=== PATIENT | female | born 2000 | race Caucasian/White ===

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

== ENCOUNTER 2021-02-19 15:52 | Emergency (ER) | payer OTHER ==
[~2021-02-19] VITALS: Ht 162.6 cm; Wt 70.8 kg
== END 2021-02-19 21:41 | disposition home or self-care (01) ==
LOC: ED 15:52
DX: G43.909 Migraine, unspecified, not intractable, without status migrainosus (principal)
CPT/HCPCS: 70450; 84703; 96374; 96375; 99284-25; J0780; J1100; J1200; J1885; J7030; U0003

== ENCOUNTER 2022-05-05 06:17 | Emergency (ER) | payer OTHER ==
[~2022-05-05] VITALS: Ht 162.6 cm; Wt 71.0 kg
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
[2022-05-05] MEDS ORDERED: METOCLOPRAMIDE10 MG (06:26)
[2022-05-05] MEDS ORDERED: PRENATAL VITAM1 EAC5 (06:27)
[2022-05-05] MEDS ORDERED: ONDANSETRON ODT4 MG PO (09:52)
== END 2022-05-05 10:03 | disposition home or self-care (01) ==
LOC: ED 06:17
DX: O21.0 Mild hyperemesis gravidarum (principal); Z3A.14 14 weeks gestation of pregnancy; Z79.899 Other long term (current) drug therapy
CPT/HCPCS: 36415; 80053; 81001; 83690; 83735; 85025; 96361; 96365; 96375; 99284-25; J2405; J2765; J3411; J3415; J7121

== ENCOUNTER 2022-10-12 22:06 | Inpatient (IN) | payer OTHER ==
[~2022-10-12] VITALS: Ht 162.6 cm; Wt 79.4 kg
--- NOTE | ~2022-10-12 | OR ---
[facility] [address] [place], [place] [address] Draft DATE OF OPERATION: 10/14/2022 SURGEON: Alie Gordon MD MACHINE HOSE CUTTER: Clint Dolan DO. PREOPERATIVE DIAGNOSIS: premature rupture of membranes, failure to progress the patient choice. POSTOPERATIVE DIAGNOSIS: premature rupture of membranes, failure to progress the patient choice, delivered. PROCEDURE: Primary section with low segment transverse uterine incision. ANESTHESIA: Epidural. ESTIMATED BLOOD LOSS: 500 mL. DRAINS: Arce catheter. INDICATIONS AND FINDINGS: The patient is a 22-year-old female, admitted on the evening of 10/12 with spontaneous rupture of membranes at 35 and 6/7th weeks. She was initially observed but failed to develop a regular labor pattern or make any significant change and Pitocin augmentation was begun. Pitocin was essentially continued for the next 24 hours with minimal change in her cervix. Pitocin was intermittently off to allow for re-sensitization of oxytocin receptors, but it was impossible to get a regular contraction pattern that lasted. She did have an IUPC and as well. After 36 hours, she had progressed from 1-4 cm total and had not made any progress over 12 hours. Options were discussed with the patient whether to continue with attempt at induction or to proceed with primary section, and she elected to proceed with primary section. She was taken the operating room where she was delivered of a little boy via lower segment transverse uterine incision with Apgars of 9 and 9 and a weight of 6 pounds 4 ounces. The uterus, tubes, ovaries, and placenta appeared normal. There is a small amount of clear fluid at PATIENT NAME: MARNIE FUNES OPERATIVE REPORT DATE OF : 00 REPORT #: [id number] PHYSICIAN: ALIE GORDON MD PCP: NO PRIMARY CARE PHYSICIAN REPORT IS CONFIDENTIAL AND NOT TO BE RELEASED WITHOUT AUTHORIZATION [facility] [address] [place], [place] [address] Draft delivery. DESCRIPTION OF PROCEDURE: The patient was prepped and draped in the supine position. A Pfannenstiel skin incision was made and carried down to the fascia. The incision was extended laterally. The inferior and superior fascial flaps were then created. The muscles were bluntly divided. The peritoneum was opened bluntly. This was extended bluntly as well. The Michael retractor was placed. The uterine incision was made at the upper aspect of the peritoneal reflection. The baby was delivered with the above findings and handed off to the pediatric staff in attendance. Cord blood was obtained. The placenta was removed manually and the uterus explored with a lap tape assuring no remaining fragments. The edges of the incision were identified and the uterus closed in two layers using 0 Monocryl. The first layer was a running locking stitch and the second was a vertical imbricating stitch. Bleeding points on the peritoneum were controlled with cautery. The abdomen was copiously irrigated, inspected and good hemostasis was noted. She initially had some atony which did not respond to the IV Pitocin and she did receive Cytotec suppository with good response. The uterus was nice and firm by the time the uterus was closed. The retractor was removed. The peritoneum identified. The peritoneum was closed with running suture of 3-0 Vicryl. The muscles were brought together with interrupted sutures of 0 Vicryl. Bleeding points were controlled with cautery. This layer was irrigated and good hemostasis was assured. The fascia was then closed from each angle to the midline with a running suture of 0 Vicryl. The subcu space was irrigated and bleeding points controlled with cautery. The deep space was closed with interrupted sutures of 3-0 Vicryl. The skin was closed with victorino. All sponge and needle counts were correct. She tolerated procedure well and was taken to the recovery room in good condition. MD YAMILEX Chin/[facility] /[id number] Copies: PATIENT NAME: MARNIE FUNES OPERATIVE REPORT DATE OF : 00 REPORT #: [id number] PHYSICIAN: ALIE GORDON MD PCP: NO PRIMARY CARE PHYSICIAN REPORT IS CONFIDENTIAL AND NOT TO BE RELEASED WITHOUT AUTHORIZATION [facility] [address] [place] [id number] Draft ~ PATIENT NAME: MARNIE FUNES OPERATIVE REPORT DATE OF : 00 REPORT #: [id number] PHYSICIAN: ALIE GORDON MD PCP: NO PRIMARY CARE PHYSICIAN REPORT IS CONFIDENTIAL AND NOT TO BE RELEASED WITHOUT AUTHORIZATION
[~2022-10-12 22:06] MED LIST changes: +METOCLOPRAMIDE10 MG; +ONDANSETRON ODT4 MG PO; +PRENATAL VITAM1 EAC5
[2022-10-13 00:07] VITALS: BP 132/87
--- NOTE | 2022-10-13 11:37 | PR ---
[facility] [address] [facility] [place], [place] [address] Signed Progress Notes IP Datetime Report Generated by CPN: 10/13/2022 11:37 PROGRESS NOTES: [id number] Impression: Reassuring Heart Rate Procedures: Intrauterine Pressure Catheter; Sterile Vag Exam Plan: Continue Present Management VITAL SIGNS: [id number] Vital Signs: Reviewed EXAM: [id number] Dilatation: 1.5 Effacement: 70 Station: -2 Contractions: q 1 to 2 min, mild MEMBRANES: [id number] Amniotic Fluid Color: Clear Comments: Still comfortable. Cx without change though contraction pattern appears adequate. IUP placed to allow for titration of pit as necessary. status good. FETUS A: [id number] FHR Baseline: 135 Variability: Moderate 6-25bpm Accelerations: 15X15 Decelerations: None FHR Category: Category I Presentation: Vertex Comments on Fetus A: no evidence of metabolic acidosis FETUS B: [id number] Signing Physician: Alie Gordon MD Copies: ~ *Electronically Signed* 10/13/22 1137 ALIE GORDON MD PATIENT NAME: MARNIE FUNES PROGRESS NOTE DATE OF : 00 PHYSICIAN: ALIE GORDON MD RPT #: [id number] REPORT IS CONFIDENTIAL AND NOT TO BE RELEASED WITHOUT AUTHORIZATION
--- NOTE | 2022-10-13 13:52 | PR ---
[facility] [address] [facility] [place] [address] Signed Progress Notes IP Datetime Report Generated by CPN: 10/13/2022 13:51 PROGRESS NOTES: [id number] Impression: Reassuring Heart Rate Procedures: Sterile Vag Exam Plan: Continue Present Management Other Plans: position changes VITAL SIGNS: [id number] Vital Signs: Reviewed EXAM: [id number] Dilatation: 2.0 Effacement: 70 Station: -2 Contractions: q 1 to 2 min, mild MEMBRANES: [id number] Amniotic Fluid Color: Clear Comments: Some left hip/back pain and pressure. Minimal change in cervix. Contraction pattern appears adequate. Will try hands and knees to see if this can help with baby's position and alleviate some of her pain. FETUS A: [id number] FHR Baseline: 135 Variability: Moderate 6-25bpm Accelerations: 15X15 Decelerations: None FHR Category: Category I Presentation: Vertex Comments on Fetus A: no evidence of metabolic acidosis FETUS B: [id number] Signing Physician: Alie Gordon MD Copies: ~ *Electronically Signed* 10/13/22 1351 ALIE GORDON MD PATIENT NAME: MARNIE FUNES PROGRESS NOTE DATE OF : 00 PHYSICIAN: ALIE GORDON MD RPT #: [id number] REPORT IS CONFIDENTIAL AND NOT TO BE RELEASED WITHOUT AUTHORIZATION
--- NOTE | 2022-10-13 16:27 | PR ---
[facility] [address] [place] [place] [address] Signed Progress Notes IP Datetime Report Generated by CPN: 10/13/2022 16:27 PROGRESS NOTES: [id number] Impression: Normal Progression of Labor Procedures: Sterile Vag Exam Plan: Continue Present Management Other Plans: continue position changes VITAL SIGNS: [id number] Vital Signs: Reviewed EXAM: [id number] Dilatation: 3.0 Effacement: 70 Station: -2 Contractions: q 1 to 2 min, mild MEMBRANES: [id number] Amniotic Fluid Color: Clear Comments: Comfortable after epidural. Some cervical change. Will decrease pit as now tommy too frequently. Will continue close observation. FETUS A: [id number] FHR Baseline: 135 Variability: Moderate 6-25bpm Accelerations: 15X15 Decelerations: None FHR Category: Category I Presentation: Vertex Comments on Fetus A: no evidence of metabolic acidosis FETUS B: [id number] Signing Physician: Alie Gordon MD Copies: ~ *Electronically Signed* 10/13/22 1627 ALIE GORDON MD PATIENT NAME: AISHA FUNESRA WALLKVNG PROGRESS NOTE DATE OF : 00 PHYSICIAN: ALIE GORDON MD RPT #: [id number] REPORT IS CONFIDENTIAL AND NOT TO BE RELEASED WITHOUT AUTHORIZATION
--- NOTE | 2022-10-13 18:45 | PR ---
[facility] [address] [place], [place] [address] Signed Progress Notes IP Datetime Report Generated by CPN: 10/13/2022 18:44 PROGRESS NOTES: [id number] Impression: Reassuring Heart Rate Procedures: Sterile Vag Exam Plan: Continue Present Management Other Plans: stop pit, hands and knees VITAL SIGNS: [id number] Vital Signs: Reviewed EXAM: [id number] Dilatation: 3.0 Effacement: 70 Station: -2 Contractions: q 1 to 2 min, mild MEMBRANES: [id number] Amniotic Fluid Color: Clear Comments: Minimal progress. Will stop pit for 30 min and restart. Will try hands and knees position. There is no evidence of intrauterine infection and status good at this time. Will continue to work toward vaginal delivery. FETUS A: [id number] FHR Baseline: 135 Variability: Moderate 6-25bpm Accelerations: 15X15 Decelerations: None FHR Category: Category I Presentation: Vertex Comments on Fetus A: no evidence of metabolic acidosis FETUS B: [id number] Signing Physician: Alie Gordon MD Copies: ~ *Electronically Signed* 10/13/22 1844 ALIE GORDON MD PATIENT NAME: MARNIE FUNES PROGRESS NOTE DATE OF : 00 PHYSICIAN: ALIE GORDON MD RPT #: [id number] REPORT IS CONFIDENTIAL AND NOT TO BE RELEASED WITHOUT AUTHORIZATION
--- NOTE | 2022-10-14 06:26 | PR ---
[facility] [address] [facility] [place], [place] [address] Signed Progress Notes IP Datetime Report Generated by CPN: 10/14/2022 06:25 PROGRESS NOTES: [id number] Impression: Reassuring Heart Rate Procedures: Sterile Vag Exam Plan: Continue Present Management Other Plans: stop pit VITAL SIGNS: [id number] Vital Signs: Reviewed EXAM: [id number] Dilatation: 4.0 Effacement: 70 Station: -2 Contractions: q 1 to 2 min, mild MEMBRANES: F4462490 Amniotic Fluid Color: Clear Comments: Minimal progress over last 12 hrs. Labor pattern can look very good and then deteriorate. Will stop pit for now and reevaluate in 30 to 60 min. FETUS A: [id number] FHR Baseline: 135 Variability: Moderate 6-25bpm Accelerations: 15X15 Decelerations: None FHR Category: Category I Presentation: Vertex Comments on Fetus A: no evidence of metabolic acidosis FETUS B: [id number] Signing Physician: Alie Gordon MD Copies: ~ *Electronically Signed* 10/14/22 0625 ALIE GORDON MD PATIENT NAME: MARNIE FUNES PROGRESS NOTE DATE OF : 00 PHYSICIAN: ALIE GORDON MD RPT #: [id number] REPORT IS CONFIDENTIAL AND NOT TO BE RELEASED WITHOUT AUTHORIZATION
--- NOTE | 2022-10-14 07:18 | PR ---
[facility] [address] [place], [place] [address] Signed Progress Notes IP Datetime Report Generated by JEFF: 10/14/2022 07:18 PROGRESS NOTES: [id number] Impression: Reassuring Heart Rate Procedures: Sterile Vag Exam Plan: Deliver- Section Other Plans: stop pit Informed Consent Obtain: Section Delivery; Risks, Benefits and Alternatives Discussed VITAL SIGNS: B4029912 Vital Signs: Reviewed EXAM: [id number] Dilatation: 4.0 Effacement: 70 Station: -2 Contractions: q 1 to 2 min, mild MEMBRANES: [id number] Amniotic Fluid Color: Clear Comments: Pt now over 36 hrs of SROM. Have been unable to achieve an effective labor pattern with and without pit. status is still good and she is afebrile. Discussed options of continuing with induction or proceeding with delivery. She would like to proceed with delivery now. I am concerned about risk of bleeding and she is amenable to transfusion if needed. She and the baby is at significant risk of infection as well. She had no questions and requested no additional information at this time. FETUS A: [id number] FHR Baseline: 135 Variability: Moderate 6-25bpm Accelerations: 15X15 Decelerations: None FHR Category: Category I Presentation: Vertex Comments on Fetus A: no evidence of metabolic acidosis FETUS B: [id number] Signing Physician: Alie Gordon MD *Electronically Signed* 10/14/22 0718 ALIE GORDON MD PATIENT NAME: AISHA FUNESRA KVNG PROGRESS NOTE DATE OF : 00 PHYSICIAN: ALIE GORDON MD RPT #: [id number] REPORT IS CONFIDENTIAL AND NOT TO BE RELEASED WITHOUT AUTHORIZATION
--- NOTE | 2022-10-14 09:23 | NUR ---
10/14/22 0923 AlexClau 0911- PT ARRIVES TO [facility] ROOM #106 ALERT AND ORIENTED. PT IS DROWSY. PT DENIES ANY PAIN OR NAUSEA. RESP EVEN AND UNLABORED. OXYGEN SAT MID TO HIGH 90'S ON RA. IV INFUSING LR WITH PITOCIN TO PT'S 20G IV IN HER RIGHT HAND. 18G TO LEFT HAND SL. PT'S SIGNIFICANT OTHER AND PT'S BUSINESS SYSTEMS ADVISOR AT THE BEDSIDE. 0913- BABY TO PT'S LEFT BREAST TO NURSE WITH ASSISTANCE FROM SCOTTY LUA RN. PT'S MOTHER AT THE BEDSIDE. 09- PT SAT UP SLIGHTLY IN BED. PT REPORTS NO DIZZINESS, NAUSEA, OR PAIN. 0921- PT TAKING SMALL SIPS OF WATER. TOLERATING WELL.
[2022-10-14 09:39] VITALS: BP 136/82
--- NOTE | 2022-10-15 08:33 | PR ---
[facility] [address] [facility] [place], [place] [address] Signed PP Progress Notes Datetime Report Generated by CPN: 10/15/2022 08:33 SUBJECTIVE: [id number] Pain: Within Normal Limits Nausea/Vomiting: Denies Flatus: Yes Bowel Movement: Yes Vital Signs: [id number] Vital Signs: Reviewed; Within Normal Limits EXAM: Ongoing Cardiovascular: Normal Respiratory: Normal Abdomen/Uterus: Normal Extremities: Normal Progress: Normal Exam Comments: NAD, sitting in chair at bedside RRR No dyspnea/ retractions Abd SNTND Ext: trace edema BLLE, neg Leobardo's BL IMPRESSION/PLAN/PROCEDURES: [id number] Impression: Normal Progression Plan: Continue Present Management Progress Notes: POD#1 s/p PLTCS -progressing well postop: ambulating, voiding, tolerating regular diet, +flatus, +BM -lochia light, pain well controlled with tylenol/ motrin -/ syringe feeding baby Signing Physician: Bethel Tang DO Copies: ~ *Electronically Signed* 10/15/22 0833 BETHEL TANG DO PATIENT NAME: MARNIE FUNES PROGRESS NOTE DATE OF : 00 PHYSICIAN: BETHEL TANG DO RPT #: [id number] REPORT IS CONFIDENTIAL AND NOT TO BE RELEASED WITHOUT AUTHORIZATION
--- NOTE | 2022-10-15 12:52 | NUR ---
PT SITTING UP IN BED WITH BABY. STATED FEELING PHYSICALLY FINE. OFFERED BABY TO ME, WHICH I ACCEPTED. CONSENTED TO PRAYER. PRAYED FOR GOOD BEGINNINGS AND ONGOING BLESSING. PT BECAME VERY EMOTIONAL AFTER PRAYER. I EXERCISED MINISTRY OF PRESENCE PT EXPRESSED WORRY AND FRUSTRATION ABOUT LIFE CIRCUMSTANCES. LIVING SITUATION IS SAFE AND SECURE BUT UNCOMFORTABLE. LOOKING FORWARD TO NEW APARTMENT THAT IS SECURED BUT HAS BEEN DELAYED. VEHICLE ACCESS IS A CHALLENGE. FAMILY NOT ACCEPTING OF BABY'S FATER. SAYS SHE FEELS SAFE BUT IS FRUSTRATED. THANKED ME FOR LISTENING. I RETURNED BABY TO HER ARMS AND LEFT MY CARD.
--- NOTE | 2022-10-16 07:56 | PR ---
[facility] [address], [place] [address] Signed PP Progress Notes Datetime Report Generated by CPManny: 10/16/2022 07:56 SUBJECTIVE: [id number] Pain: Within Normal Limits Nausea/Vomiting: Denies Flatus: Yes Bowel Movement: Yes Vital Signs: [id number] Vital Signs: Reviewed; Within Normal Limits EXAM: Ongoing Cardiovascular: Normal Respiratory: Normal Abdomen/Uterus: Normal Lochia: Normal Vulva/Perineum: Not Done Extremities: Normal Incision: Normal Progress: Normal Exam Comments: NAD, sitting in bed getting ready to pump RRR No dyspnea/ retractions Abd SNTND, FFBU Incision: c/d/i, well-approximated, no erythema/ exudate Ext: trace edema IMPRESSION/PLAN/PROCEDURES: [id number] Impression: Normal Progression Plan: Continue Present Management; Discharge Procedures: None Progress Notes: POD#2 s/p PLTCS -progressing very well : ambulating, voiding, tolerating regular diet. Lochia light, pain well-controlled with orals. well and getting excellent output with pumping. -does describe headache, normotensive, encouraged to try hydration/nap and notify if worsens -outpatient follow-up in 2d for staple removal and assistance -undecided re: contraception Signing Physician: Bethel Tang DO *Electronically Signed* 10/16/22 0756 BETHEL TANG DO PATIENT NAME: MARNIE FUNES PROGRESS NOTE DATE OF : 00 PHYSICIAN: BETHEL TANG DO RPT #: [id number] REPORT IS CONFIDENTIAL AND NOT TO BE RELEASED WITHOUT AUTHORIZATION [facility] [address] [place] [id number] Signed Copies: ~ *Electronically Signed* 10/16/22 0756 BETHEL TANG DO PATIENT NAME: MARNIE FUNES PROGRESS NOTE DATE OF : 00 PHYSICIAN: BETHEL TANG DO RPT #: [id number] REPORT IS CONFIDENTIAL AND NOT TO BE RELEASED WITHOUT AUTHORIZATION
--- NOTE | 2022-10-17 15:36 | PATH ---
[facility] [address], [place] [address] Signed SPECIMEN(S): A PLACENTA, 3RD TRIMESTER SPECIMEN SOURCE: A. PLACENTA, 3RD TRIMESTER CLINICAL HISTORY: Mother's age: 22. OB history: A1 (spontaneous). score: 9, 9. Maternal serologies: Rubella immune, RPR NR, hepatitis screen NR, GBS unknown. Specific issues of concern: Prolonged SROM at 35.6 weeks. FINAL PATHOLOGIC DIAGNOSIS: Placenta (EGA 35 6/7 weeks): - Umbilical cord: - Three-vessel. - No funisitis identified. - membranes: - Benign, no chorioamnionitis identified. - Placental disc: - 430 grams, 25-50th percentile. - No villitis or neoplasm identified. JLP:dks:C2NR MICROSCOPIC EXAMINATION: Histologic sections of all submitted blocks are examined by light microscopy. These findings, together with the gross examination, support the pathologic diagnosis. GROSS DESCRIPTION: The specimen, labeled and designated "ErastoNayeli," and designated on the requisition "placenta," is received fresh and placed in formalin and consists of a madrid discoid placenta with the following parameters: Umbilical cord: Insertion eccentric, measurement 14.0 x 1.6 cm; trivascular. Cord coiling index (per 10 cm): Three. Lesions: Not grossly identified. Membranes: Insertion site: Marginal, nicolas/translucent. Other: Not grossly identified. Chorionic Plate: Normal radiating vascular pattern, blue-purple and shiny. Lesions: Not grossly identified. Other: Not grossly identified. Maternal Surface: Normal cotyledons, intact. Lesions: Not grossly identified. Measurement: 18.0 x 16.2 x 3.2 cm; 430 grams. PATIENT NAME: MARNIE FUNES PATHOLOGY DATE OF : 00 REPORT #: [id number] PHYSICIAN: LISA PATHOLOGY PCP: NO PRIMARY CARE PHYSICIAN REPORT IS CONFIDENTIAL AND NOT TO BE RELEASED WITHOUT AUTHORIZATION [facility] [address], [place] [address] Signed Cut Surface: Maroon and spongy. Lesions: Not grossly identified. Basal plate fibrin 0.1 cm in thickness. Other Findings: Not grossly identified. Cassette Summary: (A1) Membranes and umbilical cord (A2) Placenta parenchyma (A3) Placenta parenchyma (A4) Placenta parenchyma AC (under the direct supervision of a pathologist) The Gross Description was prepared using a voice recognition system. The report was reviewed for accuracy; however, sound-alike word errors, addition and/or deletions may occur. If there is any question about this report, please contact Client Services. PERFORMING LABORATORY: Technical component was performed by [facility], [address] [place] [id number] (CLIA# [id number]). Professional interpretation was performed by [facility], [address] [place] [phone] (CLIA#: [id number]). Diagnostician: Ray Krueger MD Pathologist Electronically Signed 10/17/2022 Copies: ~ PATIENT NAME: MARNIE FUNES PATHOLOGY DATE OF : 00 REPORT #: [id number] PHYSICIAN: LISA PATHOLOGY PCP: NO PRIMARY CARE PHYSICIAN REPORT IS CONFIDENTIAL AND NOT TO BE RELEASED WITHOUT AUTHORIZATION
== END 2022-10-16 13:00 | disposition home or self-care (01) | DRG 786 ==
LOC: FBCO 22:06 → FBC 23:30
PROVIDERS: ADMIT Obstetrics & Gynecology; ATTEND Obstetrics & Gynecology
PROC: 10H07YZ Insertion of Other Device into Products of Conception, Via Natural or Artificial Opening (ICD-10-PCS; 2022-10-14)
PROC: 10D00Z1 Extraction of Products of Conception, Low, Open Approach (ICD-10-PCS; principal; 2022-10-14 07:39)
DX: O42.013 Preterm premature rupture of membranes, onset of labor within 24 hours of rupture, third trimester (principal); O60.14X0 Preterm labor third trimester with preterm delivery third trimester, not applicable or unspecified; O98.82 Other maternal infectious and parasitic diseases complicating childbirth; O99.324 Drug use complicating childbirth; O76 Abnormality in fetal heart rate and rhythm complicating labor and delivery; F12.90 Cannabis use, unspecified, uncomplicated; A74.9 Chlamydial infection, unspecified; Z37.0 Single live birth; Z3A.36 36 weeks gestation of pregnancy; Z67.40 Type O blood, Rh positive
CPT/HCPCS: 01961; 36415; 76942; 84112; 85027; 86850; 86900; 86901; 88307; A9270; J0456; J0690; J1100; J1644; J2405; J2540; J2590; J2765; J2795; J3010; J7121

== ENCOUNTER 2024-06-28 14:26 | Emergency (ER) | payer OTHER ==
[~2024-06-28] VITALS: Ht 162.6 cm; Wt 86.4 kg
[~2024-06-28 14:26] MED LIST changes: +CLINDAMYCIN HC300 MG PO
[2024-06-28] MEDS ORDERED: DOXYCYCLINE MO100 MG PO (14:41)
[2024-06-28] MEDS ORDERED: ACYCLOVIR400 MG PO (14:41)
[2024-06-28] MEDS ORDERED: ACETAMINOPHEN 500 MG TAB PO ONE (15:00)
[2024-06-28 15:53] VITALS: BP 112/66
== END 2024-06-28 15:54 | disposition home or self-care (01) ==
LOC: ED 14:26
DX: L05.01 Pilonidal cyst with abscess (principal)
CPT/HCPCS: 10060; 99283-25; A9270